=== PATIENT | female | born 1965 | race Caucasian/White ===

== ENCOUNTER 2016-10-20 18:18 | Emergency (ER) | payer OTHER, BC ==
[~2016-10-20] VITALS: Ht 157.5 cm; Wt 92.0 kg
[~2016-10-20 18:18] MED LIST: BENZ100 PO; MEDR4PAK3 PO; VENTAER INH; Z.0.NO CURRENT MEDS; ZITHTAB6 PO
[2016-10-20 18:50] VITALS: BP 140/81; PULSE 85; RESP 18; TEMP 97.8; O2SAT 98
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
[2016-10-20] MEDS ORDERED: SODIUM CHLOR 0.9% 1000 ML INJ 1,000 ML IV ONE (19:00)
[2016-10-20] MEDS ORDERED: ASPI1TAB69 PO (19:05)
[2016-10-20] MEDS ORDERED: LOVA10TA PO (19:05)
[2016-10-20] MEDS ORDERED: HYDR25TA5 PO (19:05)
[2016-10-20] MEDS ORDERED: ZANT300T PO (19:05)
[2016-10-20 19:35] LABS: AUTOMATED NEUTROPHIL # 8.5 TH/MM3 (1.8-7.7); BASOPHIL # 0.1 TH/MM3 (0-0.2); BASOPHIL % 0.5 % (0.0-2.0); EOSINOPHIL # 0.1 TH/MM3 (0-0.4); HEMATOCRIT 40.3 % (35.0-46.0); HEMO FLAGS DIFF FINAL; LYMPH % 18.1 % (9.0-44.0); LYMPHOCYTE # 2.1 TH/MM3 (1.0-4.8); MEAN CELL VOLUME 84.5 FL (80.0-100.0); MEAN CORPUSCULAR HEMOGLOBIN 29.1 PG (27.0-34.0); MEAN CORPUSCULAR HGB CONC 34.4 % (32.0-36.0); MONO % 8.2 % (0.0-8.0); NEUT % 72.2 % (16.0-70.0); PLATELET COUNT 239 TH/MM3 (150-450); RED BLOOD COUNT 4.77 MIL/MM3 (4.00-5.30); RED CELL DISTRIBUTION WIDTH 14.8 % (11.6-17.2); WHITE BLOOD COUNT 11.7 TH/MM3 (4.0-11.0)
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
[2016-10-20 19:50] LABS: BICARBONATE 26.2 MEQ/L (21.0-32.0); POTASSIUM 3.1 MEQ/L (3.5-5.1)
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
[2016-10-20] MEDS ORDERED: ROBA500T PO (20:14)
[2016-10-20] MEDS ORDERED: IBUP800T23 PO (20:14)
[2016-10-20] MEDS ORDERED: CYCLOBENZAPRINE HCL 10 MG TAB PO ONE (20:15)
[2016-10-20] MEDS ORDERED: KETOROLAC TROMETHAMINE 30 MG/ML (IVP) VIAL IV PUSH ONE (20:15)
[2016-10-20] MEDS ORDERED: POTASSIUM CHLORIDE 10 MEQ CONTROLLED RELEASE TAB PO ONE (20:15)
[2016-10-20 21:00] VITALS: BP 132/77; PULSE 79; RESP 18; O2SAT 99
== END 2016-10-20 22:20 | disposition home or self-care (01) ==
LOC: NEPA 18:18
DX: S16.1XXA Strain of muscle, fascia and tendon at neck level, initial encounter (principal); R07.89 Other chest pain; J45.909 Unspecified asthma, uncomplicated; V43.52XA Car driver injured in collision with other type car in traffic accident, initial encounter
CPT/HCPCS: 71010; 72125; 72170; 80048; 85025; 96361; 96374; 99284; J1885; J7030